=== PATIENT | male | born 1995 | race Two or more races ===

== ENCOUNTER 2022-07-23 14:22 | Emergency (ER) | payer SELFPAY ==
[~2022-07-23] VITALS: Ht 182.9 cm; Wt 96.6 kg
--- NOTE | 2022-07-23 14:25 | NUR ---
[id number] CUSTODIAL FOR WITNESSED SEIZURE. BG 136, VERBALLY RESPONSIVE IV THERAPY NURSE. NO OBVIOUS HEAD/ORAL TRAUMA NOTED. THE PATIENT IS ALERT AND ORIENTED X3. IN ROOM AIR AND DENIES SOB. RESPIRATION REGULAR AND UNLABORED. THE PATIENT IS ATTACHED TO THE MONITOR. WILL CONTINUE TO MONITOR THE PATIENT.
--- NOTE | 2022-07-23 14:35 | NUR ---
IV LINE IS ESTABLISHED, BLOOD SPECIMEN COLLECTED AND SENT TO THE LAB. THE LINE IS SALINE LOCKED.
[2022-07-23 14:44] LABS: BASOPHILS % (AUTO) 0.3 % (0.0-2.0); EOSINOPHILS % (AUTO) 0.1 % (0.0-6.0); HEMATOCRIT 46 % (39-51); HEMOGLOBIN 15.4 g/dL (13.5-17.5); LYMPHOCYTES % (AUTO) 10.8 % (20.0-44.0); MEAN CORPUSCULAR HGB CONC 34 g/dl (31.0-36.0); MEAN CORPUSCULAR VOLUME 91 fL (80-96); MONOCYTES # (AUTO) 0.4 K/uL (0.1-1.30); MONOCYTES % (AUTO) 4.5 % (2.0-12.0); NEUTROPHILS # (AUTO) 7.8 K/uL (1.8-8.9); NEUTROPHILS % (AUTO) 84.3 % (43.0-81.0); PLATELET COUNT (AUTO) 307 K/uL (150-450); RED BLOOD CELL COUNT(AUTO) 5.05 MIL/uL (4.5-6.0); WHITE BLOOD COUNT (AUTO) 9.3 K/uL (4.3-11.0)
[2022-07-23] MEDS ORDERED: IV NS 0.9% 1,000 ML BAG IV ONE (15:00)
[2022-07-23] MEDS ORDERED: LEVETIRACETAM (500MG) 500 MG in IV NS 0.9% 100 ML IV ONE ×4 (15:00)
[2022-07-23 15:12] LABS: ALANINE AMINOTRANSFERASE 269 U/L (12-78); ALBUMIN 4.5 g/dL (3.4-5.0); ALKALINE PHOSPHATASE 82 U/L (46-116); ASPARTATE AMINOTRANSFERASE 116 U/L (15-37); BILIRUBIN,DIRECT 0.3 mg/dL (0.0-0.2); BILIRUBIN,TOTAL 1.2 mg/dL (0.2-1.0); CALCIUM, SERUM 9.8 mg/dL (8.5-10.1); CARBON DIOXIDE 25 mmol/L (21-32); CHLORIDE 102 mmol/L (98-107); CREATININE 0.9 mg/dL (0.6-1.3); GLUCOSE 115 mg/dL (74-106); POTASSIUM 4.1 mmol/L (3.5-5.1); SODIUM SERUM 136 mmol/L (136-145); TOTAL PROTEIN, SERUM 8.9 g/dL (6.4-8.2); UREA NITROGEN, BLOOD 12 mg/dL (7-18)
[2022-07-23 15:14] LABS: ALCOHOL, BLOOD < 3 mg/dL (0-0)
[2022-07-23] MEDS ORDERED: ONDANSETRON HCL/PF 4 MG/2 ML VIAL ONE (15:15)
[2022-07-23] MEDS ORDERED: MAG HYDROX/AL HYDROX/SIMETH 30 ML UDC ONE (15:15)
[2022-07-23] MEDS ORDERED: LIDOCAINE VISCOUS 2% UD 15 ML UDC ONE (15:15)
[2022-07-23] MEDS ORDERED: FAMOTIDINE/PF INJ 20 MG/2 ML VIAL IV ONE ×2 (15:16→15:30)
[2022-07-23] MEDS ORDERED: LIDOCAINE VISCOUS 2% UD 15 ML UDC MM ONE (15:30)
[2022-07-23] MEDS ORDERED: ONDANSETRON HCL/PF 4 MG/2 ML VIAL IV ONE (15:30)
[2022-07-23] MEDS ORDERED: MAG HYDROX/AL HYDROX/SIMETH 30 ML UDC PO ONE (15:30)
--- NOTE | 2022-07-23 16:01 | NUR ---
URINE COLLECTED AND SENT TO THE LAB
[2022-07-23] MEDS ORDERED: FAMO-131 PO (16:17)
[2022-07-23] MEDS ORDERED: LEVE500T9 PO (16:17)
[2022-07-23] MEDS ORDERED: ONDA4TAB5 PO (16:17)
--- NOTE | 2022-07-23 16:58 | NUR ---
[facility] AT BEDSIDE FOR US
--- NOTE | 2022-07-23 18:16 | NUR ---
Patient discharged in custody of [employer] officer Chandra [id number] of [facility] in stable condition. Written and verbal after care instructions given. Patient and police officers verbalizes understanding of instruction.
--- NOTE | 2022-07-23 18:16 | NUR ---
IV removed. Catheter intact and site benign. Pressure and 4x4 applied to site. No bleeding noted.
[2022-07-23 18:18] VITALS: BP 132/77
== END 2022-07-23 18:19 ==
LOC: ER 14:25
DX: G40.909 Epilepsy, unspecified, not intractable, without status epilepticus (principal); R10.13 Epigastric pain; Z91.14 Patient's other noncompliance with medication regimen; Z79.899 Other long term (current) drug therapy
CPT/HCPCS: 99285; 96365; 96366; 96375; 93005; 76705; 85025; 80048; 83690; 80076; 36415; 80320; 80307; J3490; J2405; J7030 ×3; J1953 ×2; G0480